=== PATIENT | male | born 1985 | race Caucasian/White ===

== ENCOUNTER 2019-09-14 19:42 | Emergency (ER) | payer BC ==
--- NOTE | 2019-09-14 19:48 | EDM.PDOC ---
ED HPI GENERAL MEDICAL PROBLEM - General Chief Complaint: Skin Complaint Stated Complaint: tick bite Time Seen by Provider: 09/14/19 19:44 Source of Information: Reports: Patient History Limitations: Reports: No Limitations - History of Present Illness INITIAL COMMENTS - FREE TEXT/NARRATIVE: HISTORY AND PHYSICAL: History of present illness: Patient is a 33-year-old male who presents to the emergency room with complaints of redness to an area that previously had a tick. A few days ago he had removed a tick from his right anterior chest wall and now has a bull's-eye rash to the area. He is concerned he may need antibiotics for treatment of Lyme disease. Patient denies any fever, chills, headache, change in vision, syncope or near syncope. Denies any chest pain, back pain, shortness of breath or cough. Denies any GI or symptoms. Patient has been eating and drinking appropriately. Review of systems: As per history of present illness and below otherwise all systems reviewed and negative. Past medical history: As per history of present illness and as reviewed below otherwise noncontributory. Surgical history: As per history of present illness and as reviewed below otherwise noncontributory. Social history: See social history for further information Family history: As per history of present illness and as reviewed below otherwise noncontributory. Physical exam: General: Well developed and well nourished 33-year-old male. Alert and oriented. Nontoxic-appearing and in no acute distress. HEENT: Atraumatic, normocephalic, pupils equal and reactive bilaterally, negative for conjunctival pallor or scleral icterus, mucous membranes moist, TMs normal bilaterally, throat clear, neck supple, nontender, trachea midline. No drooling or trismus noted. No meningeal signs. No hot potato voice noted. Lungs: Clear to auscultation, breath sounds equal bilaterally, chest nontender. Heart: S1S2, regular rate and rhythm without overt murmur Abdomen: Soft, nondistended, nontender. Skin: Faint 50 cent piece size bull's-eye rash to the right anterior chest above the nipple line. Otherwise remaining skin is intact, warm, dry. No lesions or rashes noted. Extremities: Atraumatic, moves all extremities per self without difficulty or deficits, negative for cords or calf pain. Neurovascular unremarkable. Neuro: Awake, alert, oriented. Cranial nerves II through XII unremarkable. Cerebellum unremarkable. Motor and sensory unremarkable throughout. Exam nonfocal. Notes: Besides the faint rash to the right upper chest wall he has no other complaints or concerns today. I will do a Lyme titer to assess for Lyme disease although I will treat with doxycycline. No neurological symptoms. Supportive care measures were reviewed and discussed. Voices understanding and is agreeable to plan of care. Denies any further questions or concerns at this time. Diagnostics: Lyme Therapeutics: None Prescription: Doxycycline Impression: Tick Bite Plan: 1. Please use Tylenol and/or Ibuprofen as needed for pain and fever management. 2. Continue to monitor the skin and watch for symptoms as we discussed. Take the antibiotic as directed. 3. Please follow up with your primary care provider. Return to the ED as needed as discussed. Definitive disposition and diagnosis as appropriate pending reevaluation and review of above. - Related Data Allergies Allergy/AdvReac Type Severity Reaction Status Date / Time No Known Allergies Allergy Verified 09/14/19 19:50 Home Meds: Home Meds Doxycycline [Vibramycin] 100 mg PO BID 14 Days #28 cap 09/14/19 [Rx] ED ROS GENERAL - Review of Systems Review Of Systems: Comprehensive ROS is negative, except as noted in HPI. ED EXAM, SKIN/RASH Exam: See Below (See dictation) Course - Vital Signs Last Recorded V/S: Last Vital Signs Temp 97.3 F 09/14/19 19:46 Pulse 88 09/14/19 19:46 Resp 18 09/14/19 19:46 BP 127/93 H 09/14/19 19:46 Pulse Ox 98 09/14/19 19:46 - Orders/Labs/Meds Orders: Active Orders 24 hr Category Date Time Status LYME, TOTAL AB TEST/REFLEX [REF] Stat Lab 09/14/19 19:44 Ordered Departure - Departure Time of Disposition: 19:52 Disposition: Home, Self-Care 01 Clinical Impression: Tick bite of chest wall Qualifiers: Encounter type: initial encounter Laterality: right Qualified Code(s): S20.361A - Insect bite (nonvenomous) of right front wall of thorax, initial encounter - Discharge Information Prescriptions: Doxycycline [Vibramycin] 100 mg PO BID 14 Days #28 cap Forms: ED Department Discharge Additional Instructions: The following information is given to patients seen in the emergency department who are being discharged to home. This information is to outline your options for follow-up care. We provide all patients seen in our emergency department with a follow-up referral. The need for follow-up, as well as the timing and circumstances, are variable depending upon the specifics of your emergency department visit. If you don't have a primary care physician on staff, we will provide you with a referral. We always advise you to contact your personal physician following an emergency department visit to inform them of the circumstance of the visit and for follow-up with them and/or the need for any referrals to a consulting specialist. The emergency department will also refer you to a specialist when appropriate. This referral assures that you have the opportunity for follow-up care with a specialist. All of these measure are taken in an effort to provide you with optimal care, which includes your follow-up. Under all circumstances we always encourage you to contact your private physician who remains a resource for coordinating your care. When calling for follow-up care, please make the office aware that this follow-up is from your recent emergency room visit. If for any reason you are refused follow-up, please contact the [facility] Emergency Department at and asked to speak to the emergency department charge nurse. [facility] [address] [place] [id number] [place] [address] 1. Please use Tylenol and/or Ibuprofen as needed for pain and fever management. 2. Continue to monitor the skin and watch for symptoms as we discussed. Take the antibiotic as directed. 3. Please follow up with your primary care provider. Return to the ED as needed as discussed. Sepsis Event Note - Focused Exam Vital Signs: Vital Signs Temp Pulse Resp BP Pulse Ox 09/14/19 19:46 97.3 F 88 18 127/93 H 98 Date Exam was Performed: 09/14/19 Time Exam was Performed: 19:56 - My Orders Last 24 Hours: My Active Orders 09/14/19 19:44 LYME, TOTAL AB TEST/REFLEX [REF] Stat - Assessment/Plan Last 24 Hours: My Active Orders 09/14/19 19:44 LYME, TOTAL AB TEST/REFLEX [REF] Stat
[2019-09-15 01:06] VITALS: BP 119/61; PULSE 81
== END 2019-09-14 20:16 | disposition home or self-care (01) ==
LOC: MW.ED 19:42
DX: S20.361A Insect bite (nonvenomous) of right front wall of thorax, initial encounter (principal); W57.XXXA Bitten or stung by nonvenomous insect and other nonvenomous arthropods, initial encounter
CPT/HCPCS: 86618; 99282

== ENCOUNTER 2019-09-20 17:55 | Emergency (ER) | payer BC ==
--- NOTE | 2019-09-20 18:26 | EDM.PDOC ---
ED HPI GENERAL MEDICAL PROBLEM - General Chief Complaint: Lower Extremity Injury/Pain Stated Complaint: POSSIBLE GOUT Time Seen by Provider: 09/20/19 18:07 Source of Information: Reports: Patient History Limitations: Reports: No Limitations - History of Present Illness INITIAL COMMENTS - FREE TEXT/NARRATIVE: 33-year-old male with no past medical history presents with atraumatic left great toe pain since 3:00am today. Denies fever, chills, trauma, IVDA. He has a significant family history of gout. He does not have a PCP in town. He has taken Tylenol 2500 mg today along with ibuprofen 600 mg today for pain relief. ROS: A 10-point review of systems, other than pertinent positives and negatives as stated per HPI, is otherwise negative PHYSICAL EXAM General: AOx4, GCS = 15, mild distress HEENT: dry mucous membrane Neck: supple, no meningismus, no Kernig or Brudzinski Cardiac: S1S2 RRR Respiratory: CTAB, no crackles or rales, no wheezing Abdomen: Soft, nontender, no rebound or guarding, nondistended, no pulsatile mass. Back: nontender Musculoskeletal: NVI distally, left great toe tender, swelling, erythema. Neuro: No focal deficits. MEDICAL DECISION MAKING: I reviewed the patients past medical records, lab and radiographic findings. I discussed the case with family members. My differential diagnosis included: gout arthritis. Patient denies trauma, I do not suspect fracture or dislocation warranting imaging studies. Patient has no fever or history of IVDA or diabetes or immunocompromise state, I do not suspect septic arthritis. Onset: Today left foot Pain Score (Numeric/FACES): 10 - Related Data Allergies Allergy/AdvReac Type Severity Reaction Status Date / Time No Known Allergies Allergy Verified 09/20/19 18:17 Home Meds: Home Meds Doxycycline [Vibramycin] 100 mg PO BID 14 Days #28 cap 09/14/19 [Rx] Indomethacin 50 mg PO TID #15 capsule 09/20/19 [Rx] predniSONE [Prednisone] 50 mg PO DAILY #5 tablet 09/20/19 [Rx] Past Medical History - Past Health History Medical/Surgical History: Denies Medical/Surgical History HEENT History: Reports: None Cardiovascular History: Reports: None Respiratory History: Reports: None Gastrointestinal History: Reports: None Genitourinary History: Reports: None Musculoskeletal History: Reports: None Neurological History: Reports: None Psychiatric History: Reports: None Endocrine/Metabolic History: Reports: None Hematologic History: Reports: None Immunologic History: Reports: None Oncologic (Cancer) History: Reports: None Dermatologic History: Reports: None - Infectious Disease History Infectious Disease History: Reports: None - Past Surgical History Head Surgeries/Procedures: Reports: None HEENT Surgical History: Reports: None Cardiovascular Surgical History: Reports: None Respiratory Surgical History: Reports: None GI Surgical History: Reports: None Male Surgical History: Reports: None Endocrine Surgical History: Reports: None Neurological Surgical History: Reports: None Musculoskeletal Surgical History: Reports: None Oncologic Surgical History: Reports: None Dermatological Surgical History: Reports: None Social & Family History - Family History Family Medical History: Noncontributory - Tobacco Use Smoking Status *Q: Current Every Day Smoker Years of Tobacco use: 10 Packs/Tins Daily: 0.9 - Caffeine Use Caffeine Use: Reports: None - Recreational Drug Use Recreational Drug Use: No Review of Systems - Review of Systems Review Of Systems: See Below (see dictation) ED EXAM, GENERAL - Physical Exam Exam: See Below (see dictation) Course - Vital Signs Last Recorded V/S: Last Vital Signs Temp 98.2 F 09/20/19 18:16 Pulse 88 09/20/19 18:16 Resp 18 09/20/19 18:16 BP 128/77 09/20/19 18:16 Pulse Ox 98 09/20/19 18:16 - Re-Assessments/Exams Free Text/Narrative Re-Assessment/Exam: 09/20/19 18:23 After treatments and a prolonged observation period in the ER, the patient improved clinically and is stable for discharge. I performed a repeat examination and the patient has not demonstrated any new abnormal findings. Patient exhibits normal vital signs and has exhibited a normal gait. I advised the patient to return to the ER for reevaluation if symptoms worsened, and to follow up with the clinic within 2-3 days. Departure - Departure Time of Disposition: 18:24 Disposition: Home, Self-Care 01 Condition: Good Clinical Impression: Gout attack - Discharge Information *PRESCRIPTION DRUG MONITORING PROGRAM REVIEWED*: Not Applicable *COPY OF PRESCRIPTION DRUG MONITORING REPORT IN PATIENT [place]: Not Applicable Prescriptions: Indomethacin 50 mg PO TID #15 capsule predniSONE [Prednisone] 50 mg PO DAILY #5 tablet Instructions: Low-Purine Eating Plan Referrals: PCP,None [Primary Care Provider] - Additional Instructions: The following information is given to patients seen in the emergency department who are being discharged to home. This information is to outline your options for follow-up care. We provide all patients seen in our emergency department with a follow-up referral. The need for follow-up, as well as the timing and circumstances, are variable depending upon the specifics of your emergency department visit. If you don't have a primary care physician on staff, we will provide you with a referral. We always advise you to contact your personal physician following an emergency department visit to inform them of the circumstance of the visit and for follow-up with them and/or the need for any referrals to a consulting specialist. The emergency department will also refer you to a specialist when appropriate. This referral assures that you have the opportunity for follow-up care with a specialist. All of these measure are taken in an effort to provide you with optimal care, which includes your follow-up. Under all circumstances we always encourage you to contact your private physician who remains a resource for coordinating your care. When calling for follow-up care, please make the office aware that this follow-up is from your recent emergency room visit. If for any reason you are refused follow-up, please contact the [facility] Emergency Department at and asked to speak to the emergency department charge nurse. If you do not have a primary care doctor, please follow up with the clinics below within 3-5 days. Lizandro Devi [facility] - Primary Care [address] [place] [id number] [facility] [address] [place] [id number] Sepsis Event Note (ED) - Evaluation Sepsis Screening Result: No Definite Risk - Focused Exam Vital Signs: Vital Signs Temp Pulse Resp BP Pulse Ox 09/20/19 18:16 98.2 F 88 18 128/77 98
[2019-09-20 18:44] VITALS: BP 127/77; PULSE 82
== END 2019-09-20 18:44 | disposition home or self-care (01) ==
LOC: MW.ED 17:55
DX: M10.9 Gout, unspecified (principal); F17.210 Nicotine dependence, cigarettes, uncomplicated; Z79.899 Other long term (current) drug therapy
CPT/HCPCS: 99283

== ENCOUNTER 2020-10-30 23:06 | Emergency (ER) | payer SELFPAY ==
[2020-10-30] MEDS ORDERED: Ketorolac 15 MG/ML SDV IM STA (23:38)
[2020-10-30] MEDS ORDERED: diphenhydrAMINE 50 MG/ML SDV IM ONE (23:39)
[2020-10-30 23:59] VITALS: BP 142/92; PULSE 85
--- NOTE | 2020-10-31 00:41 | CT ---
INDICATION: Headache after injury. COMPARISON: None available. TECHNIQUE: CT examination of the head was performed with 2 and 5 mm thick axial and 2 mm thick coronal and sagittal sections without intravenous contrast. Images were obtained from the vertex of the skull through the skull base, and I examined the images with the brain and bone windows. Please note that all CT scans at this facility use dose modulation, iterative reconstruction, and/or weight-based dosing when appropriate to reduce radiation dose to as low as reasonably achievable. FINDINGS: : The brain is normal in appearance for the patient`s age on today`s study, with no sign of mass lesion, mass effect, hemorrhage, or edema. The ventricles and sulci are normal in appearance for the patient`s age. The visualized portions of the orbits are normal in appearance. There is moderate acute on chronic bilateral maxillary sinusitis. The rest of the visualized portions of the paranasal sinuses and mastoids are clear. The osseous structures are normal in their appearance with no sign of abnormality in the skull base or calvarium. IMPRESSION: No sign of closed head injury. No sign of acute injury to the brain. Normal CT appearance of the brain for the patient`s age. Moderate acute on chronic bilateral maxillary sinusitis. Please note that all CT scans at this facility use dose modulation, iterative reconstruction, and/or weight-based dosing when appropriate to reduce radiation dose to as low as reasonably achievable. Dictated by Fidel Serrano MD @ 10/31/2020 12:40:[address] Fidel Serrano @ Oct 31 2020 12:40AM
--- NOTE | 2020-10-31 00:48 | EDM.PDOC ---
ED HPI GENERAL MEDICAL PROBLEM - General Chief Complaint: Headache Stated Complaint: HEADACHE Time Seen by Provider: 10/30/20 23:46 - History of Present Illness INITIAL COMMENTS - FREE TEXT/NARRATIVE: HISTORY AND PHYSICAL: History of present illness: This is a 35-year-old gentleman with no significant history of hypertension, diabetes, liver, lung, kidney problems who presents ER today secondary to intermittent headaches for approximately 1 to 2 weeks now. Patient has any recent fevers, shakes, chills, nausea, vomiting, diarrhea, dysuria, frequency, urgency, chest pain, shortness of breath, double vision, blurred vision, slurred speech, weakness his upper or lower extremities. Patient has any nuchal rigidity. Patient reports that the headache was gradual in onset and not thunderclap in nature. Patient reports that he feels that he has sinus congestion on the left side of his face. Patient reports no significant headaches or ER visits in the past for headaches or prior CT scan of the head. Review of systems: As per history of present illness and below otherwise all systems reviewed and negative. Past medical history: As per history of present illness and as reviewed below otherwise noncontributory. Surgical history: As per history of present illness and as reviewed below otherwise noncontributory. Social history: No reported history of drug abuse. Positive history of cocaine use Family history: As per history of present illness and as reviewed below otherwise noncontributory. Physical exam: This patient was seen and evaluated during the 2019 SARS-CoV-2 novel coronavirus pandemic period. Community viral transmission is ongoing at time of this encounter and the emergency department is operating under pandemic response procedures. Constitutional: Patient is oriented to person, place, and time. Appears well- developed and well-nourished. No distress. HEENT: Moist mucous membranes Head: Normocephalic and atraumatic. Neck supple, no nuchal rigidity, no photophobia, no Kernig's sign or Brudzinski sign, patient does not present with signs or symptoms of be consistent with meningitis. Eyes: Right eye exhibits no discharge. Left eye exhibits no discharge. No scleral icterus Neck: Normal range of motion. No tracheal deviation present. Cardiovascular: Normal rate and regular rhythm. Pulmonary: Effort normal, no respiratory distress. Abdominal: No distention Musculoskeletal: Normal range of motion Neurologic: Alert and oriented to person, place and time. Skin: [place], warm and dry. Psychiatric: Normal mood and affect. Behavior is normal. Judgment and thought content normal. Nursing note and vital signs have been reviewed Diagnostics: CT head: No evidence of acute pathology identified. Therapeutics: [] Toradol 30 IM, Benadryl 50 IM Assessment and plan: 35-year-old gentleman who presents ER today secondary to headache. Patient was given Benadryl and Toradol here in the ED and has been resting comfortably since. Patient has no significant pathology noted at the CT scan of his head. Believe that the patient's headache is likely secondary to an allergic rhinitis. Patient will need to follow-up with his primary care physician for further evaluation. I recommended the patient take Claritin and zbrq-cqb-pigyape Benadryl to assist with the symptoms. Reassessment at the time of disposition demonstrates that the patient is in no acute distress. The patient has remained stable throughout the entire ED visit and is without objective evidence for acute process requiring urgent intervention or hospitalization. The patient is stable for discharge, counseling is provided as documented above, discussed symptomatic treatment and specific conditions for return. I have spoken with the patient/caregiver and discussed todays findings, in addition to providing specific details for the plan of care. Questions are answered and there is agreement with the plan. Definitive disposition and diagnosis as appropriate pending reevaluation and review of above. Left Head Pain Score (Numeric/FACES): 6 - Related Data Allergies Allergy/AdvReac Type Severity Reaction Status Date / Time No Known Allergies Allergy Verified 09/20/19 18:17 Home Meds: Home Meds Naproxen Sodium [Naproxen Sodium Cr] 750 mg PO 10/30/20 [History] Past Medical History - Past Health History Medical/Surgical History: Denies Medical/Surgical History HEENT History: Reports: None Cardiovascular History: Reports: None Respiratory History: Reports: None Gastrointestinal History: Reports: None Genitourinary History: Reports: None Musculoskeletal History: Reports: None Neurological History: Reports: None Psychiatric History: Reports: None Endocrine/Metabolic History: Reports: None Hematologic History: Reports: None Immunologic History: Reports: None Oncologic (Cancer) History: Reports: None Dermatologic History: Reports: None - Infectious Disease History Infectious Disease History: Reports: None - Past Surgical History Head Surgeries/Procedures: Reports: None HEENT Surgical History: Reports: None Cardiovascular Surgical History: Reports: None Respiratory Surgical History: Reports: None GI Surgical History: Reports: None Male Surgical History: Reports: None Endocrine Surgical History: Reports: None Neurological Surgical History: Reports: None Musculoskeletal Surgical History: Reports: None Oncologic Surgical History: Reports: None Dermatological Surgical History: Reports: None Social & Family History - Family History Family Medical History: No Pertinent Family History - Tobacco Use Tobacco Use Status *Q: Current Every Day Tobacco User Years of Tobacco use: 10 Packs/Tins Daily: 0.5 - Caffeine Use Caffeine Use: Reports: None - Alcohol Use Days Per Week of Alcohol Use: 2 Number of Drinks Per Day: 2 Total Drinks Per Week: 4 - Recreational Drug Use Recreational Drug Use: No ED ROS GENERAL - Review of Systems Review Of Systems: See Below ED EXAM, GENERAL - Physical Exam Exam: See Below Course - Vital Signs Last Recorded V/S: Last Vital Signs Temp 98.3 F 10/30/20 23:28 Pulse 85 10/30/20 23:28 Resp 20 10/30/20 23:28 BP 142/92 H 10/30/20 23:28 Pulse Ox 96 10/30/20 23:28 - Orders/Labs/Meds Meds: Medications Discontinued Medications Generic Name Dose Route Start Last Admin Trade Name Freq PRN Reason Stop Dose Admin Diphenhydramine HCl 50 mg 10/30/20 23:39 10/30/20 23:50 Diphenhydramine 50 Mg/Ml Sdv IM 10/30/20 23:40 50 mg ONETIME ONE Administration Ketorolac Tromethamine 30 mg 10/30/20 23:38 10/30/20 23:50 Ketorolac 15 Mg/Ml Sdv IM 10/30/20 23:39 30 mg Q6H STA Administration Departure - Departure Time of Disposition: 00:47 Disposition: Home, Self-Care 01 Condition: Good Clinical Impression: Headache, Allergic sinusitis - Discharge Information Instructions: Allergic Rhinitis, Adult, General Headache Without Cause Referrals: PCP,None [Primary Care Provider] - Additional Instructions: Your seen and evaluated in the ER today secondary to headache. This is most likely secondary to allergic rhinitis and allergies affecting her sinuses. You can take [id number] Claritin or Simran to assist you with your symptoms. I would also recommend that you take Benadryl 50 mg every 6 hours as needed if your headache should recur. Please go home and get plenty rest. Please make an appointment see your family doctor within the next week for reevaluation. Please return to the ER if you develop any new or concerning symptoms. The following information is given to patients seen in the emergency department who are being discharged to home. This information is to outline your options for follow-up care. We provide all patients seen in our emergency department with a follow-up referral. The need for follow-up, as well as the timing and circumstances, are variable depending upon the specifics of your emergency department visit. If you don't have a primary care physician on staff, we will provide you with a referral. We always advise you to contact your personal physician following an emergency department visit to inform them of the circumstance of the visit and for follow-up with them and/or the need for any referrals to a consulting specialist. The emergency department will also refer you to a specialist when appropriate. This referral assures that you have the opportunity for follow-up care with a specialist. All of these measure are taken in an effort to provide you with optimal care, which includes your follow-up. Under all circumstances we always encourage you to contact your private physician who remains a resource for coordinating your care. When calling for follow-up care, please make the office aware that this follow-up is from your recent emergency room visit. If for any reason you are refused follow-up, please contact the [facility] Emergency Department at and asked to speak to the emergency department charge nurse. [facility] - Primary Care [address] [place] [id number] [facility] [address] [place] [id number] Sepsis Event Note (ED) - Evaluation Sepsis Screening Result: No Definite Risk - Focused Exam Vital Signs: Vital Signs Temp Pulse Resp BP Pulse Ox 10/30/20 23:28 98.3 F 85 20 142/92 H 96
== END 2020-10-31 00:56 | disposition home or self-care (01) ==
LOC: MW.ED 23:06
DX: J30.9 Allergic rhinitis, unspecified (principal); E11.9 Type 2 diabetes mellitus without complications; I10 Essential (primary) hypertension; Z72.0 Tobacco use
CPT/HCPCS: 70450; 96372; 99283; J1200; J1885

== ENCOUNTER 2022-03-09 20:11 | Emergency (ER) | payer BC ==
[2022-03-09] MEDS ORDERED: Tetracaine HCl/PF 0.5% 4 ML Bottle EYERT ONE (20:41)
[2022-03-09] MEDS ORDERED: oxyCODONE 5 MG Tab PO ONE (20:42)
[2022-03-09 22:49] VITALS: BP 135/68; PULSE 78
[2022-03-10] MEDS ORDERED: Moxifloxacin 0.5% Ophth Soln 3 ML Bottle EYELF ONE (22:15)
== END 2022-03-09 22:47 | disposition home or self-care (01) ==
LOC: MW.ED 20:11
DX: S00.11XA Contusion of right eyelid and periocular area, initial encounter (principal); E11.9 Type 2 diabetes mellitus without complications; F17.210 Nicotine dependence, cigarettes, uncomplicated; W18.09XA Striking against other object with subsequent fall, initial encounter
CPT/HCPCS: 70450; 70486; 99283; A9270

== ENCOUNTER 2023-10-21 22:12 | Emergency (ER) | payer SELFPAY ==
[2023-10-21] MEDS: Tetracaine HCl/PF 0.5% 4 ML Bottle EYEBOTH STA (22:39)
[2023-10-21] MEDS: Sodium Chloride 0.9% 500 ML IV SCH (23:08)
[2023-10-22 00:31] VITALS: BP 130/86; PULSE 81
== END 2023-10-22 00:32 | disposition home or self-care (01) ==
LOC: MW.ED 22:12
DX: H57.89 Other specified disorders of eye and adnexa (principal)
CPT/HCPCS: 99283; J7040; J3490

== ENCOUNTER 2024-06-26 15:46 | Emergency (ER) | payer OTHER ==
[2024-06-26] MEDS: Tetracaine HCl/PF 0.5% 4 ML Bottle EYEBOTH ONE (16:05)
[2024-06-26] MEDS: Fluorescein 1 MG Ophth Strip EYEBOTH ONE (16:06)
[2024-06-26] MEDS: Erythromycin Base 0.5% Ophth Oint 1 GM Tube EYERT ONE (16:53)
[2024-06-26 17:21] VITALS: BP 143/96; PULSE 71
== END 2024-06-26 17:21 | disposition home or self-care (01) ==
LOC: MW.ED 15:46
DX: T15.01XA Foreign body in cornea, right eye, initial encounter (principal); H15.89 Other disorders of sclera; W20.8XXA Other cause of strike by thrown, projected or falling object, initial encounter; Y93.01 Activity, walking, marching and hiking; Y99.0 Civilian activity done for income or pay
CPT/HCPCS: 99283; A9270; 99282; J3490